=== PATIENT | male | born 1995 | race Caucasian/White ===

== ENCOUNTER 2020-08-18 11:17 | Emergency (ER) | payer BC ==
--- NOTE | 2020-08-18 11:53 | EDM.PDOC ---
ED HPI GENERAL MEDICAL PROBLEM - General Chief Complaint: Neuro Symptoms/Deficits Stated Complaint: RIDE SIDE HAVING PROBLEMS Time Seen by Provider: 08/18/20 11:20 - History of Present Illness INITIAL COMMENTS - FREE TEXT/NARRATIVE: 25-year-old male presents the emergency room with difficulty moving his right side. The Patient awoke about an hour ago unable to move his right arm or leg and he called someone to help him who stated he was having difficulty speaking at that time as well. The patient is at or near baseline now. The patient went to bed about midnight this last evening and everything was fine. The patient is a type I diabetic. He denies any drugs or alcohol. - Related Data Allergies Allergy/AdvReac Type Severity Reaction Status Date / Time No Known Allergies Allergy Verified 08/18/20 11:36 Home Meds: Home Meds Clopidogrel Bisulfate [Clopidogrel] 75 mg PO DAILY #21 tablet 08/18/20 [Rx] Insulin Aspart [NovoLOG] 1 unit SQ ASDIRECTED 08/18/20 [History] Past Medical History Endocrine/Metabolic History: Reports: Diabetes, Type I Social & Family History - Tobacco Use Tobacco Use Status *Q: Current Every Day Tobacco User Years of Tobacco use: 3 Packs/Tins Daily: 1 - Caffeine Use Caffeine Use: Reports: Coffee, Energy Drinks, Soda, Tea - Recreational Drug Use Recreational Drug Use: No ED ROS GENERAL - Review of Systems Review Of Systems: See Below Constitutional: Reports: No Symptoms HEENT: Reports: No Symptoms Respiratory: Reports: No Symptoms Cardiovascular: Reports: No Symptoms GI/Abdominal: Reports: No Symptoms : Reports: No Symptoms Musculoskeletal: Reports: No Symptoms Skin: Reports: No Symptoms Neurological: Reports: Other (See history of present illness) Hematologic/Lymphatic: Reports: No Symptoms Immunologic: Reports: No Symptoms ED EXAM, NEURO - Physical Exam Exam: See Below Exam Limited By: No Limitations General Appearance: Alert, No Apparent Distress Ears: Normal External Exam, Normal Canal, Hearing Grossly Normal, Normal TMs Nose: Normal Inspection, Normal Mucosa, No Blood Throat/Mouth: Normal Inspection, Normal Lips, Normal Teeth, Normal Gums, Normal Oropharynx, Normal Voice, No Airway Compromise Head Exam: Atraumatic, Normocephalic Neck: Normal Inspection, Supple, Non-Tender, Full Range of Motion. No: Lymphadenopathy (L), Lymphadenopathy (R) Respiratory/Chest: No Respiratory Distress, Lungs Clear, Normal Breath Sounds Cardiovascular: Regular Rate, Rhythm, No Edema, No Murmur GI/Abdominal: Normal Bowel Sounds, Soft, Non-Tender Neurological: Alert, CN II-XII Intact, No Motor/Sensory Deficits, Oriented x 3 Back Exam: Normal Inspection, Full Range of Motion. No: CVA Tenderness (L), CVA Tenderness (R) Extremities: Normal Inspection, No Pedal Edema Course - Vital Signs Last Recorded V/S: Last Vital Signs Temp 36.1 C 08/18/20 12:30 Pulse 77 08/18/20 14:45 Resp 18 08/18/20 14:45 BP 133/79 08/18/20 14:45 Pulse Ox 100 08/18/20 14:45 - Orders/Labs/Meds Orders: Active Orders 24 hr Category Date Time Status Blood Glucose Check, Bedside [RC] ONETIME Care 08/18/20 11:33 Active Blood Glucose Check, Bedside [RC] ONETIME Care 08/18/20 12:04 Active Blood Glucose Check, Bedside [] ONETIME Care 08/18/20 13:30 Active EKG Documentation Completion [RC] STAT Care 08/18/20 11:44 Active Sodium Chloride 0.9% [Normal Saline] 45 ml Med 08/18/20 13:15 Active IV ASDIRECTED Sodium Chloride 0.9% [Saline Flush] Med 08/18/20 13:02 Active 10 ml FLUSH ONETIME PRN Medication Orders Sodium Chloride (Normal Saline) 45 mls @ 40 mls/hr IV ASDIRECTED NEHA Last Admin: 08/18/20 13:49 Dose: 40 mls/hr Documented by: LEE Sodium Chloride (Sodium Chloride 0.9% 10 Ml Syringe) 10 ml FLUSH ONETIME PRN PRN Reason: Keep Vein Open Last Admin: 08/18/20 13:48 Dose: 10 ml Documented by: LEE Labs: Laboratory Tests 08/18/20 08/18/20 08/18/20 Range/Units 11:33 11:51 11:51 WBC 7.30 (4.23-9.07) K/mm3 RBC 5.56 (4.63-6.08) M/mm3 Hgb 16.2 (13.7-17.5) gm/dl Hct 47.2 (40.1-51.0) % MCV 84.9 (79.0-92.2) fl MCH 29.1 (25.7-32.2) pg MCHC 34.3 (32.2-35.5) g/dl RDW Std Deviation 40.6 (35.1-43.9) fL Plt Count 214 (163-337) K/mm3 MPV 11.8 (9.4-12.3) fl Neut % (Auto) 81.9 H (34.0-67.9) % Lymph % (Auto) 11.0 L (21.8-53.1) % Wells % (Auto) 5.6 (5.3-12.2) % Eos % (Auto) 1.1 (0.8-7.0) Baso % (Auto) 0.3 (0.1-1.2) % Neut # (Auto) 5.98 H (1.78-5.38) K/mm3 Lymph # (Auto) 0.80 L (1.32-3.57) K/mm3 Wells # (Auto) 0.41 (0.30-0.82) K/mm3 Eos # (Auto) 0.08 (0.04-0.54) K/mm3 Baso # (Auto) 0.02 (0.01-0.08) K/mm3 PT 10.9 (9.7-12.0) SECONDS INR 1.02 APTT 26.7 (21.7-31.4) SECONDS Sodium (136-145) mEq/L Potassium (3.5-5.1) mEq/L Chloride (98-107) mEq/L Carbon Dioxide (21-32) mEq/L Anion Gap (5-15) BUN (7-18) mg/dL Creatinine (0.7-1.3) mg/dL Est Cr Clr Drug Dosing Estimated GFR (MDRD) (>60) mL/min BUN/Creatinine Ratio (14-18) Glucose (74-106) mg/dL POC Glucose 70 (70-105) mg/dL Hemoglobin A1c ( - 5.6) % Calcium (8.5-10.1) mg/dL Total Bilirubin (0.2-1.0) mg/dL AST (15-37) U/L ALT (16-63) U/L Alkaline Phosphatase (46-116) U/L Troponin I (0.00-0.056) ng/mL Total Protein (6.4-8.2) g/dl Albumin (3.4-5.0) g/dl Globulin gm/dL Albumin/Globulin Ratio (1-2) 08/18/20 08/18/20 08/18/20 Range/Units 11:51 11:51 12:03 WBC (4.23-9.07) K/mm3 RBC (4.63-6.08) M/mm3 Hgb (13.7-17.5) gm/dl Hct (40.1-51.0) % MCV (79.0-92.2) fl MCH (25.7-32.2) pg MCHC (32.2-35.5) g/dl RDW Std Deviation (35.1-43.9) fL Plt Count (163-337) K/mm3 MPV (9.4-12.3) fl Neut % (Auto) (34.0-67.9) % Lymph % (Auto) (21.8-53.1) % Wells % (Auto) (5.3-12.2) % Eos % (Auto) (0.8-7.0) Baso % (Auto) (0.1-1.2) % Neut # (Auto) (1.78-5.38) K/mm3 Lymph # (Auto) (1.32-3.57) K/mm3 Wells # (Auto) (0.30-0.82) K/mm3 Eos # (Auto) (0.04-0.54) K/mm3 Baso # (Auto) (0.01-0.08) K/mm3 PT (9.7-12.0) SECONDS INR APTT (21.7-31.4) SECONDS Sodium 144 (136-145) mEq/L Potassium 4.7 (3.5-5.1) mEq/L Chloride 106 (98-107) mEq/L Carbon Dioxide 28 (21-32) mEq/L Anion Gap 14.7 (5-15) BUN 9 (7-18) mg/dL Creatinine 0.7 (0.7-1.3) mg/dL Est Cr Clr Drug Dosing TNP Estimated GFR (MDRD) > 60 (>60) mL/min BUN/Creatinine Ratio 12.9 L (14-18) Glucose 67 L (74-106) mg/dL POC Glucose 71 (70-105) mg/dL Hemoglobin A1c 7.9 H ( - 5.6) % Calcium 8.9 (8.5-10.1) mg/dL Total Bilirubin 0.7 (0.2-1.0) mg/dL AST 23 (15-37) U/L ALT 37 (16-63) U/L Alkaline Phosphatase 73 (46-116) U/L Troponin I < 0.017 (0.00-0.056) ng/mL Total Protein 7.0 (6.4-8.2) g/dl Albumin 3.8 (3.4-5.0) g/dl Globulin 3.2 gm/dL Albumin/Globulin Ratio 1.2 (1-2) 08/18/20 Range/Units 13:37 WBC (4.23-9.07) K/mm3 RBC (4.63-6.08) M/mm3 Hgb (13.7-17.5) gm/dl Hct (40.1-51.0) % MCV (79.0-92.2) fl MCH (25.7-32.2) pg MCHC (32.2-35.5) g/dl RDW Std Deviation (35.1-43.9) fL Plt Count (163-337) K/mm3 MPV (9.4-12.3) fl Neut % (Auto) (34.0-67.9) % Lymph % (Auto) (21.8-53.1) % Wells % (Auto) (5.3-12.2) % Eos % (Auto) (0.8-7.0) Baso % (Auto) (0.1-1.2) % Neut # (Auto) (1.78-5.38) K/mm3 Lymph # (Auto) (1.32-3.57) K/mm3 Wells # (Auto) (0.30-0.82) K/mm3 Eos # (Auto) (0.04-0.54) K/mm3 Baso # (Auto) (0.01-0.08) K/mm3 PT (9.7-12.0) SECONDS INR APTT (21.7-31.4) SECONDS Sodium (136-145) mEq/L Potassium (3.5-5.1) mEq/L Chloride (98-107) mEq/L Carbon Dioxide (21-32) mEq/L Anion Gap (5-15) BUN (7-18) mg/dL Creatinine (0.7-1.3) mg/dL Est Cr Clr Drug Dosing Estimated GFR (MDRD) (>60) mL/min BUN/Creatinine Ratio (14-18) Glucose (74-106) mg/dL POC Glucose 197 H (70-105) mg/dL Hemoglobin A1c ( - 5.6) % Calcium (8.5-10.1) mg/dL Total Bilirubin (0.2-1.0) mg/dL AST (15-37) U/L ALT (16-63) U/L Alkaline Phosphatase (46-116) U/L Troponin I (0.00-0.056) ng/mL Total Protein (6.4-8.2) g/dl Albumin (3.4-5.0) g/dl Globulin gm/dL Albumin/Globulin Ratio (1-2) Meds: Medications Generic Name Dose Route Start Last Admin Trade Name Bianka PRN Reason Stop Dose Admin Sodium Chloride 45 mls @ 40 mls/hr 08/18/20 13:15 08/18/20 13:49 Normal Saline IV 40 mls/hr ASDIRECTED NEHA Administration Sodium Chloride 10 ml 08/18/20 13:02 08/18/20 13:48 Sodium Chloride 0.9% 10 Ml Syringe FLUSH 10 ml ONETIME PRN Administration Keep Vein Open Discontinued Medications Generic Name Dose Route Start Last Admin Trade Name Bianka PRN Reason Stop Dose Admin Aspirin 81 mg 08/18/20 12:56 08/18/20 13:40 Aspirin 81 Mg Tab.Chew PO 08/18/20 12:57 81 mg ONETIME ONE Administration Clopidogrel Bisulfate 75 mg 08/18/20 12:56 08/18/20 13:40 Clopidogrel 75 Mg Tab PO 08/18/20 12:57 75 mg ONETIME ONE Administration Gadobenate Dimeglumine 15 ml 08/18/20 12:56 08/18/20 13:48 Gadobenate Dimeglumine 529 Mg/Ml 15 Ml Sdv IVPUSH 08/18/20 12:57 15 ml ONETIME ONE Administration Iopamidol 100 ml 08/18/20 13:02 08/18/20 13:49 Iopamidol 755 Mg/Ml 100 Ml Bottle IVPUSH 08/18/20 13:03 100 ml ONETIME ONE Administration - Re-Assessments/Exams Free Text/Narrative Re-Assessment/Exam: 08/18/20 12:[address] was unremarkable. I was able to discuss the case with Dr. Mendiola, neurologist at [facility] in [place]. His recommendation is the patient has resolved and returned to baseline is to check an A1c lipid panel start Plavix an d aspirin obtain it CTA of the head and neck and MRI with and without and also check a echocardiogram and have him follow-up with neurology. This will be set up after we forward the results of the studies to neurology. 08/18/20 14:09 MRI with and without is unrevealing. Globin A1c is 7.9 awaiting CTA results all images have been forwarded to [facility] in [place]. I was able to discuss the outpatient work-up with his regular physician, Dr. Brar, he will arrange a lipid panel fasting. 08/18/20 14:56 Cardiac echo has been done it will take several days to get the results back. I rechecked the patient's muscle strength and he is probably stronger on the right compared to the left he is right-hand dominant. Sensation appears to be intact he has the sensation of tightness in his right arm. At this point we will discharge on Plavix 75 mg daily and aspirin 81 mg daily. He should continue the Plavix for 3 weeks. X-ray and radiology images of been forwarded to [facility] all results thus far have been forwarded to the neurology clinic. Departure - Departure Time of Disposition: 15:06 Disposition: Home, Self-Care 01 Clinical Impression: TIA (transient ischemic attack) - Discharge Information Prescriptions: Clopidogrel Bisulfate [Clopidogrel] 75 mg PO DAILY #21 tablet Instructions: Transient Ischemic Attack, [id number] Referrals: Leobardo Brar MD [Primary Care Provider] - Forms: ED Department Discharge, ED Return to Work/School Form Additional Instructions: Return to the emergency room with any questions problems or worsening symptoms. Neurology from [facility] in [place] will be calling you to arrange an appointment. Your regular physician here Dr. Brar, will arrange a fasting lipid panel call his office to find out when this should be done. You been started on Plavix this keeps your platelets from clotting up. You will take 1 daily for 3 weeks. You have also been started on a baby aspirin daily you will take this indefinitely. As we discussed bleeding will be more of a problem when you cut yourself and bruising may develop easier than normal. The aspirin 81 mg is a baby aspirin this is [id number]. Find 81 mg aspirin preferably enteric-coated and take this once daily. Sepsis Event Note (ED) - Evaluation Sepsis Screening Result: No Definite Risk - Focused Exam Vital Signs: Vital Signs Temp Pulse Resp BP Pulse Ox 08/18/20 14:45 77 18 133/79 100 08/18/20 14:30 80 19 137/73 99 08/18/20 12:30 36.1 C 19 134/81 100 08/18/20 11:34 36.0 C L 79 17 136/91 H 100 - My Orders Last 24 Hours: My Active Orders 08/18/20 11:33 Blood Glucose Check, Bedside [RC] ONETIME 08/18/20 11:44 EKG Documentation Completion [RC] STAT 08/18/20 12:04 Blood Glucose Check, Bedside [RC] ONETIME 08/18/20 13:02 Sodium Chloride 0.9% [Saline Flush] 10 ml FLUSH ONETIME PRN 08/18/20 13:15 Sodium Chloride 0.9% [Normal Saline] 45 ml IV ASDIRECTED 08/18/20 13:30 Blood Glucose Check, Bedside [RC] ONETIME - Assessment/Plan Last 24 Hours: My Active Orders 08/18/20 11:33 Blood Glucose Check, Bedside [RC] ONETIME 08/18/20 11:44 EKG Documentation Completion [RC] STAT 08/18/20 12:04 Blood Glucose Check, Bedside [RC] ONETIME 08/18/20 13:02 Sodium Chloride 0.9% [Saline Flush] 10 ml FLUSH ONETIME PRN 08/18/20 13:15 Sodium Chloride 0.9% [Normal Saline] 45 ml IV ASDIRECTED 08/18/20 13:30 Blood Glucose Check, Bedside [RC] ONETIME
--- NOTE | 2020-08-18 12:03 | CT ---
Head CT Technique: Multiple axial sections through the brain were obtained. Intravenous contrast was not utilized. Reconstructed sagittal and coronal images were obtained. Findings: Ventricles along with basal cisterns and sulci over the convexities are within normal limits. No abnormal parenchymal densities are seen. No evidence of intracranial hemorrhage. No midline shift or mass-effect is seen. Bone window settings were reviewed. The visualized mastoid and paranasal sinuses show nothing acute. No acute calvarial abnormality is appreciated. Impression: 1. Nothing acute is seen on noncontrast head CT study. 2. If patient's symptoms warrant further evaluation, MRI could then be considered. Diagnostic code #1
[2020-08-18] MEDS ORDERED: Aspirin 81 MG Tab.Chew PO ONE (12:56)
[2020-08-18] MEDS ORDERED: Gadobenate Dimeglumine 529 MG/ML 15 ML SDV IVPUSH ONE (12:56)
[2020-08-18] MEDS ORDERED: Clopidogrel 75 MG Tab PO ONE (12:56)
[2020-08-18] MEDS ORDERED: Iohexol 300 MG/ML 30 ML Bottle IVPUSH ONE (13:02)
[2020-08-18] MEDS ORDERED: Sodium Chloride 0.9% 10 ML Syringe FLUSH PRN (13:02)
[2020-08-18] MEDS ORDERED: Iopamidol 755 Mg/ML 100 ML Bottle IVPUSH ONE (13:02)
[2020-08-18 13:14] LABS: HEMOGLOBIN A1C 7.9 %
[2020-08-18] MEDS ORDERED: Sodium Chloride 0.9% 45 ML IV SCH (13:15)
--- NOTE | 2020-08-18 13:55 | MR ---
MRI brain (without and with intravenous contrast) postcontrast T1 axial and T1 inversion recovery coronal images were also obtained Technique: T1 sagittal; T2, T2 FLAIR, T1 and diffusion axial; T1 FLAIR coronal images were obtained. Comparison: Prior head CT exam performed earlier on the same day (11:43 AM). Findings: Ventricles along with basal cisterns and sulci over the convexities are within normal limits for the patient's age. Normal signal void is seen within the major cerebral arteries within the skull base. No abnormal signal is seen within the brain parenchyma. No abnormal areas of diffusion are seen. No abnormal areas of enhancement are seen. Impression: 1. Nothing acute is appreciated on MRI study of the brain performed without and with contrast. Diagnostic code #1
--- NOTE | 2020-08-18 14:17 | CT ---
CT angiogram of brain Technique: Multiple axial sections through the brain were obtained. Intravenous contrast was utilized. Study has been performed as a CT angiogram. Multiple MIP images were obtained. Findings: Left A1 segment shows slight hypoplasty as compared to the right side which is most likely developmental. Anterior cerebral arteries are patent. Both middle cerebral arteries are patent. Basilar artery and posterior cerebral arteries are patent. No focal stenosis is appreciated. No discrete aneurysm is appreciated. Impression: 1. Smaller caliber of left A1 segment which is believed to be developmental. 2. Other portions of the CT angiogram study of the brain appear within normal limits. Diagnostic code #1
--- NOTE | 2020-08-18 14:17 | CT ---
CT angiogram of neck Technique: Multiple axial sections of the neck were obtained. Intravenous contrast was utilized. Multiple MIP images were also obtained. Comparison: No prior vascular imaging is available. Findings: Common carotid arteries: Both carotid common carotid arteries are widely patent. No focal stenosis or dissection is seen. Internal carotid arteries: Both internal carotid arteries are well opacified. No focal stenosis or dissection is seen. External carotid arteries. Bilateral external carotid arteries show patency of the proximal portions. Vertebral arteries: Slightly dominant left vertebral artery is seen as compared to the right side which is a normal variant. No focal stenosis or occlusion is seen. No discrete dissection is appreciated. Impression: 1. Nothing acute is appreciated on CT study of the neck. Diagnostic code #1
== END 2020-08-18 15:25 | disposition home or self-care (01) ==
LOC: JD.ED 11:17
DX: G45.9 Transient cerebral ischemic attack, unspecified (principal); E10.9 Type 1 diabetes mellitus without complications; Z72.0 Tobacco use; Z79.02 Long term (current) use of antithrombotics/antiplatelets; Z79.82 Long term (current) use of aspirin
CPT/HCPCS: 36415; 70450; 70496; 70498; 70553; 80053; 82962; 83036; 84484; 85025; 85610; 85730; 93005; 93306; 99285; A9270; A9577; Q9967; 99284

== ENCOUNTER 2021-06-02 18:41 | Emergency (ER) | payer BC ==
--- NOTE | 2021-06-02 19:27 | EDM.PDOC ---
ED HPI GENERAL MEDICAL PROBLEM - General Chief Complaint: Respiratory Problem Stated Complaint: SORE THROAT Time Seen by Provider: 06/02/21 18:55 Source of Information: Reports: Patient History Limitations: Reports: No Limitations - History of Present Illness INITIAL COMMENTS - FREE TEXT/NARRATIVE: The patient presents with a cough, fever, chills, cough, sore throat and he lost his voice. This started today. He has no loss of taste or smell. He has a history of diabetes type I. He has no history of asthma. He has not been around anyone with COVID or influenza as fare as he knows. Onset: Gradual Duration: Hour(s): Location: Reports: Other (throat) Quality: Reports: Sharp Severity: Moderate Improves with: Reports: None Worsens with: Reports: None Associated Symptoms: Reports: Cough, Fever/Chills. Denies: Chest Pain, Headaches, Nausea/Vomiting, Shortness of Breath Generalized Pain Score (Numeric/FACES): 5 - Related Data Allergies Allergy/AdvReac Type Severity Reaction Status Date / Time No Known Allergies Allergy Verified 06/02/21 18:58 Home Meds: Home Meds Clopidogrel Bisulfate [Clopidogrel] 75 mg PO DAILY #21 tablet 08/18/20 [Rx] Insulin Aspart [NovoLOG] 1 unit SQ ASDIRECTED 08/18/20 [History] Oseltamivir [Tamiflu] 75 mg PO BID #10 cap 06/02/21 [Rx] Past Medical History Endocrine/Metabolic History: Reports: Diabetes, Type I Social & Family History - Tobacco Use Tobacco Use Status *Q: Current Every Day Tobacco User Years of Tobacco use: 5 Packs/Tins Daily: 1 - Caffeine Use Caffeine Use: Reports: Coffee, Energy Drinks, Soda - Recreational Drug Use Recreational Drug Use: No ED ROS GENERAL - Review of Systems Review Of Systems: See Below Constitutional: Reports: Fever, Chills HEENT: Reports: Throat Pain Respiratory: Reports: Cough. Denies: Shortness of Breath Cardiovascular: Reports: No Symptoms Endocrine: Reports: No Symptoms GI/Abdominal: Reports: No Symptoms : Reports: No Symptoms Musculoskeletal: Reports: No Symptoms ED EXAM, GENERAL - Physical Exam Exam: See Below Exam Limited By: No Limitations General Appearance: Alert, No Apparent Distress Ears: Normal External Exam Nose: Normal Inspection Throat/Mouth: Other (Mild erythema) Head: Atraumatic, Normocephalic Neck: Normal Inspection Respiratory/Chest: No Respiratory Distress, Lungs Clear, Normal Breath Sounds Cardiovascular: Regular Rate, Rhythm, No Edema, No Murmur GI/Abdominal: Soft, Non-Tender, No Organomegaly, No Mass Back Exam: Normal Inspection Extremities: Normal Inspection Course - Vital Signs Last Recorded V/S: Last Vital Signs Temp 100.2 F 06/02/21 18:55 Pulse 95 06/02/21 18:55 Resp 18 06/02/21 18:55 BP 157/91 H 06/02/21 18:55 Pulse Ox 94 L 06/02/21 18:55 - Orders/Labs/Meds Labs: Laboratory Tests 06/02/21 06/02/21 Range/Units 18:50 20:20 Influenza Type A RNA Positive H (NEGATIVE) Influenza Type B RNA Negative (NEGATIVE) SARS-CoV-2 RNA (LEONARDO) Negative (NEGATIVE) Group A Strep (PCR) Not detected (NOT DETECT) - Re-Assessments/Exams Free Text/Narrative Re-Assessment/Exam: 06/02/21 19:27 I ordered COVID, strep, and influenza. 06/02/21 21:14 His is influenza A positive. I will get him on some tamiflu. Departure - Departure Time of Disposition: 21:15 Disposition: Home, Self-Care 01 Condition: Good Clinical Impression: Influenza A - Discharge Information *PRESCRIPTION DRUG MONITORING PROGRAM REVIEWED*: Not Applicable *COPY OF PRESCRIPTION DRUG MONITORING REPORT IN PATIENT ABHIJEET: Not Applicable Prescriptions: Oseltamivir [Tamiflu] 75 mg PO BID #10 cap Referrals: Leobardo Brar MD [Primary Care Provider] - 1 Week Forms: ED Department Discharge Additional Instructions: Drink plenty of fluids. Take the tamiflu 2 times per day for 5 days. Take tylenol or motrin as needed for fever or pain. Please return if you are worse. Sepsis Event Note (ED) - Focused Exam Vital Signs: Vital Signs Temp Pulse Resp BP Pulse Ox 06/02/21 18:55 100.2 F 95 18 157/91 H 94 L
[2021-06-02 19:59] LABS: CORONAVIRUS COVID-19 NAA NEGATIVE (NEGATIVE)
== END 2021-06-02 21:21 | disposition home or self-care (01) ==
LOC: JD.ED 18:41
DX: J10.1 Influenza due to other identified influenza virus with other respiratory manifestations (principal); Z20.822 Contact with and (suspected) exposure to COVID-19; E10.9 Type 1 diabetes mellitus without complications; Z72.0 Tobacco use; Z79.02 Long term (current) use of antithrombotics/antiplatelets
CPT/HCPCS: 0240U; 87651; 99283